=== PATIENT | female | born 1965 | race African-American/Black ===

== ENCOUNTER 2020-04-30 16:12 | Emergency (ER) | payer OTHER, SELFPAY ==
[~2020-04-30] VITALS: Ht 157.5 cm; Wt 95.3 kg
[2020-04-30 16:29] VITALS: BP 141/104
--- NOTE | 2020-04-30 16:32 | NUR ---
BIB SELF C/O COUGH, NEGRO, BODY ACHES X YESTERDAY. MED HX: HTN
--- NOTE | 2020-04-30 16:58 | NUR ---
COVID SWAB DONE.
[2020-04-30] MEDS: ACETAMINOPHEN EXTRA STRENGTH 500 MG TAB PO ONE (17:44)
--- NOTE | 2020-04-30 17:50 | NUR ---
Patient discharged with v/s stable. Written and verbal after care instructions given and explained. Patient alert, oriented and verbalized understanding of instructions. Ambulatory with steady gait. All questions addressed prior to discharge. ID band removed. Patient advised to follow up with PMD. Rx of ACETAMINOPHEN, ROBITUSSIN & ALBUTEROL given. Patient educated on indication of medication including possible reaction and side effects. Opportunity to ask questions provided and answered.
[2020-04-30 17:51] VITALS: BP 138/88
--- NOTE | 2020-05-01 13:35 | NUR ---
Received covid results from lab--not detected at this time. Copy to go to [facility] at infection control
== END 2020-04-30 17:50 | disposition home or self-care (01) ==
LOC: MED 16:12
DX: R05 Cough (principal); R51 Headache; M79.10 Myalgia, unspecified site; Z88.6 Allergy status to analgesic agent; Z20.828 Contact with and (suspected) exposure to other viral communicable diseases
CPT/HCPCS: 71045; 99284; U0003